=== PATIENT | female | born 1980 | race Caucasian/White ===

== ENCOUNTER 2017-05-30 21:44 | Emergency (ER) | payer OTHER ==
[2017-05-30 21:50] VITALS: BP 135/87
--- NOTE | 2017-05-30 22:01 | UC ---
Neck Pain HPI - HPI Summary HPI Summary: 37 YEAR OLD FEMALE PRESENTS WITH COMPLAINS OF INTRACTABLE NECK PAIN, LEFT JAW CLAUDICATION, AND LEFT ARM NUMBNESS. - History of Current Complaint Chief Complaint: UCBackPain Stated Complaint: NECK PAIN, AND JAW TIGHTNESS Time Seen by Provider: 05/30/17 21:58 Hx Obtained From: Patient Hx Last Menstrual Period: 05/02/17 Onset/Duration Of Injury/Symptoms: Hours Mechanism Of Injury: Sharp Trauma Onset/Duration: Sudden Onset Severity: Severe Pain Scale Used: 0-10 Numeric - 10 - Allergies/Home Medications Allergies/Adverse Reactions: Allergies Allergy/AdvReac Type Severity Reaction Status Date / Time Amoxicillin Allergy Itching Verified 05/30/17 22:38 Home Medications: Home Medications NK [No Home Medications Reported] 05/30/17 [History Confirmed 05/30/17] PMH/Surg Hx/FS Hx/Imm Hx Previously Healthy: Yes - Surgical History Surgical History: Yes Surgery Procedure, Year, and Place: x 3 - Social History Alcohol Use: None Substance Use Type: None Smoking Status (MU): Heavy Every Day Tobacco Smoker Type: Cigarettes Amount Used/How Often: 1/2 ppd Have You Smoked in the Last Year: Yes Household Exposure Type: Cigarettes - Immunization History Most Recent Influenza Vaccination: 05/17 Most Recent Tetanus Shot: unknown Most Recent Pneumonia Vaccination: None Review Of Systems Constitutional: Positive: Negative Eyes: Positive: Negative ENT: Positive: Negative Respiratory: Positive: Negative Cardiovascular: Positive: Negative Gastrointestinal: Positive: Negative Genitourinary: Positive: Negative Musculoskeletal: Positive: Other: - LEFT SIDED NECK PAIN All Other Systems Reviewed And Are Negative: Yes Physical Exam Triage Information Reviewed: Yes Appearance: Ill-Appearing Vital Signs: Initial Vital Signs Temp 37.1 C 05/30/17 21:46 Pulse 81 05/30/17 21:46 Resp 16 05/30/17 21:46 BP 135/87 05/30/17 21:46 Pulse Ox 100 05/30/17 21:46 Vital Signs Reviewed: Yes Eye Exam: Normal ENT Exam: Normal Dental Exam: Normal Neck exam: Normal Neck: Positive: 1 Respiratory Exam: Normal Cardiovascular Exam: Normal Abdominal Exam: Normal Musculoskeletal: Positive: Other: - LEFT NECK PAIN Neurological Exam: Normal Psychological Exam: Normal Skin Exam: Normal Neck Pain Course/Dx - Differential Dx/Diagnosis Provider Diagnoses: LEFT NECK PAIN Discharge - Discharge Plan Condition: Stable Disposition: HOME Patient Education Materials: Neck Pain (ED) Referrals: No Primary Care Phys,NOPCP [Primary Care Provider] - Additional Instructions: PLEASE GO TO ER FOR INTRACTABLE NECK PAIN.
== END 2017-05-30 22:14 | disposition home or self-care (01) ==
LOC: UCEAST 21:44
DX: M54.2 Cervicalgia (principal); M26.69 Other specified disorders of temporomandibular joint; R20.0 Anesthesia of skin; Z88.1 Allergy status to other antibiotic agents; F17.210 Nicotine dependence, cigarettes, uncomplicated
CPT/HCPCS: 99211; G0463

== ENCOUNTER 2017-05-30 22:29 | Emergency (ER) | payer OTHER ==
[2017-05-31] MEDS ORDERED: Ketorolac INJ* 60 MG/2 ML VIAL IM ONE (00:36)
[2017-05-31] MEDS ORDERED: Orphenadrine Citrate IV* 30 MG/ML 2 ML VIAL IM ONE (00:36)
[2017-05-31] MEDS ORDERED: Ketorolac INJ* 60 MG/2 ML VIAL ONE (00:39)
[2017-05-31] MEDS ORDERED: Orphenadrine Citrate IV* 30 MG/ML 2 ML VIAL ONE (00:39)
--- NOTE | 2017-05-31 02:56 | ED ---
Delano Del Rosario Alfonso, scribed for Laura Chung MD on 05/31/17 at 0050 . Complex/Multi-Sys Presentation - HPI Summary HPI Summary: This patient is a 37 year old F presenting to [facility] with a chief complaint of posterior neck pain since two weeks ago. The neck pain radiates to her jaw and shoulders. The patient rates the pain 8/10 in severity. Symptoms alleviated by nothing. Patient reports arm weakness and leg numbness. Patient denies fever, trauma, and urinary incontinence. Tobacco abuse disorder. - History Of Current Complaint Chief Complaint: EDNeckComplaint Time Seen by Provider: 05/31/17 00:35 Hx Obtained From: Patient Onset/Duration: Sudden Onset, Lasting Weeks - 2, Still Present Timing: Constant Alleviating Factor(s): nothing Associated Signs And Symptoms: Positive: Other - arm weakness and leg numbness. Patient denies fever, trauma, and urinary incontinence. - Allergies/Home Medications Allergies/Adverse Reactions: Allergies Allergy/AdvReac Type Severity Reaction Status Date / Time Amoxicillin Allergy Itching Verified 05/30/17 22:38 PMH/Surg Hx/FS Hx/Imm Hx Opthamlomology History: Denies: Hx Legally Blind EENT History: Denies: Hx Deafness Psychiatric History: Reports: Hx Depression - Surgical History Surgery Procedure, Year, and Place: x 3 Infectious Disease History: No Infectious Disease History: Denies: History Other Infectious Disease, Traveled Outside the [place] in Last 30 Days - Family History Known Family History: Positive: Other - Negative cancer - Social History Alcohol Use: None Substance Use Type: Reports: None Smoking Status (MU): Heavy Every Day Tobacco Smoker Type: Cigarettes Amount Used/How Often: 1/2 ppd Have You Smoked in the Last Year: Yes Review of Systems Negative: Fever Negative: incontinence Positive: Other - neck pain; negative trauma Neurological: Other - arm weakness and leg numbness All Other Systems Reviewed And Are Negative: Yes Physical Exam - Summary Physical Exam Summary: General: Well appearing, no pain distress Skin: Warm, Skin Color Reflects Adequate Perfusion, Dry Eyes: EOMI, SCOOTER ENT: Pharynx normal, TMs normal Neck: Supple, nontender Respiratory: CTA, breath sounds present, no rhonchi, no wheezes, no rales Cardiovascular: RRR, no murmur, no rub, no gallop Abdomen: Soft, nontender, Non-distended, no guarding, no rebound Bowel: Present Musculoskeletal: C1 and 2 tenderness. DTR normal. No hyperreflexia. Diffuse 4- strength. Neuro: Sensory/motor intact, A&Ox3, CN intact 2-12 Psych: Affect/mood appropriate Triage Information Reviewed: Yes Vital Signs On Initial Exam: Initial Vitals Temp Pulse Resp BP Pulse Ox 97.1 F 78 16 149/92 99 05/30/17 22:35 05/30/17 22:35 05/30/17 22:35 05/30/17 22:35 05/30/17 22:35 Vital Signs Reviewed: Yes Diagnostics - Vital Signs Vital Signs Temp Pulse Resp BP Pulse Ox 05/30/17 22:35 97.1 F 78 16 149/92 99 - Laboratory Lab Statement: Any lab studies that have been ordered have been reviewed, and results considered in the medical decision making process. - CT C-Spine CT Interpretation Completed By: Radiologist - Right central herniated disc osteophyte complex and uncovetebral joint hypertrophy at C2/3 which mildly now the right lateral recess and right neural foramen. ED physician has reviewed this radiology report and agrees. Complex Multi-Symp Course/Dx Course Of Treatment: 37 yo female with neck pain ct shows disk herniation no spinal cord involvement pt felt as though both upper and lower ext were weak but she had normal bicep and hip flexor strength and normal dtr's on exam and pain was much better in the ED. She has no risky diagnoses like cancer, diabetes or iV drug use. Pt understands she likely needs to arrange an outpt mri with her pmd and should return for change in sensation or strength - Diagnoses Provider Diagnoses: Cervical disc herniation Discharge - Discharge Plan Condition: Stable Disposition: HOME Prescriptions: Cyclobenzaprine TAB* [Flexeril 10 MG TAB*] 10 mg PO TID PRN #30 tab PRN Reason: Spasms HYDROcodone/ACETAMIN 5-325 MG* [Trout 5-325 TAB*] 2 tab PO Q8H PRN #18 tab MDD 6 PRN Reason: Pain Referrals: Ryan Sanchez MD [Primary Care Provider] - The documentation as recorded by the Delano haque Alfonso accurately reflects the service I personally performed and the decisions made by me, Laura Chung MD.
[2017-05-31 05:06] VITALS: BP 132/90
--- NOTE | 2017-05-31 08:04 | RAD ---
INDICATION: Right neck pain COMPARISON: None TECHNIQUE: Noncontrast axial source images was performed from the skull base to the thoracic inlet. Coronal and and sagittal reformatted images were generated. FINDINGS: Vertebrae: There is no fracture or acute focal bony lesion. Alignment: The craniocervical junction appears normal. The cervical vertebrae are normally aligned. Central Canal: There is right-sided disc/osteophyte complex with uncinate process spurring at C2-C3 resulting in mild foraminal encroachment. There are no additional significant CT abnormalities of the central canal or foramina. MR imaging is a more sensitive method to evaluate the canal and foramina. Intervertebral disc spaces: The disc spaces are maintained. Brain: The visualized brain appears unremarkable. Soft tissues: The visualized soft tissue elements of the neck are unremarkable. The prevertebral soft tissues appear normal. The lung apices are clear. IMPRESSION: ] RIGHT-SIDED DISC/OSTEOPHYTE COMPLEX AND UNCINATE PROCESS SPURRING AT C2-C3 LEADING TO MILD FORAMINAL COMPROMISE CONSIDER MR IMAGING.
== END 2017-05-31 03:45 | disposition home or self-care (01) ==
LOC: ED 22:29
DX: M50.220 Other cervical disc displacement, mid-cervical region, unspecified level (principal); M54.2 Cervicalgia; F17.210 Nicotine dependence, cigarettes, uncomplicated
CPT/HCPCS: 72125; 96374; 96375; 99282; J1885; J2360

== ENCOUNTER 2017-07-15 18:10 | Emergency (ER) | payer OTHER ==
[2017-07-15 18:17] VITALS: BP 151/93
[2017-07-15] MEDS ORDERED: Cyclobenzaprine TAB* 10 MG PO ONE (18:57)
[2017-07-15] MEDS ORDERED: HYDROcodone/ACETAMIN 5-325 MG* 1 TAB PO ONE (18:57)
--- NOTE | 2017-07-15 18:57 | UC ---
UC General HPI - HPI Summary HPI Summary: 8 WEEKS OR WORSENING PAIN IN TMJ AREA BILATERALLY. IBUPROFEN AND TYLENOL NO LONGER HELPING. WORSE WITH CHEWING. PT HAS A LOT OF STRESS AT HOME AND DOES THINK SHE CLENCHES HER TEETH. HAS APPT WITH PCP 08/08 BUT HERE BECAUSE PAIN IS GETTING INTOLERABLE. - History of Current Complaint Chief Complaint: UCBackPain Stated Complaint: JAW PAIN Time Seen by Provider: 07/15/17 18:33 Hx Obtained From: Patient Hx Last Menstrual Period: 07/04/2017 Onset/Duration: Gradual Onset, Lasting Weeks, Still Present Timing: Constant Onset Severity: Moderate Current Severity: Moderate Pain Intensity: 6 Associated Signs & Symptoms: Negative: Cough, Chest Pain, Fever, Nausea, Palpitations, Recent Medication Changes, Syncope, SOB, Trauma - Allergy/Home Medications Allergies/Adverse Reactions: Allergies Allergy/AdvReac Type Severity Reaction Status Date / Time Amoxicillin Allergy Itching Verified 07/15/17 18:17 Home Medications: Home Medications Acetaminophen TAB* [Tylenol TAB*] 1,000 mg PO Q72HR 07/15/17 [History Confirmed 07/15/17] Clindamycin Cap(NF) [Clindamycin Cap 300 mg Cap(NF)] 1 tab PO TID 07/15/17 [ History Confirmed 07/15/17] Ibuprofen TAB* [Motrin TAB* 800 MG] 1 tab PO Q3HR 07/15/17 [History Confirmed ] PMH/Surg Hx/FS Hx/Imm Hx Previously Healthy: Yes - Surgical History Surgical History: Yes Surgery Procedure, Year, and Place: x 3 - Family History Known Family History: Positive: Other - Negative cancer - Social History Alcohol Use: None Substance Use Type: None Smoking Status (MU): Heavy Every Day Tobacco Smoker Type: Cigarettes Amount Used/How Often: 1/2 ppd Have You Smoked in the Last Year: Yes Household Exposure Type: Cigarettes - Immunization History Most Recent Influenza Vaccination: 05/17 Most Recent Tetanus Shot: unknown Most Recent Pneumonia Vaccination: None Review of Systems Constitutional: Negative Skin: Negative Respiratory: Negative Cardiovascular: Negative Gastrointestinal: Negative Musculoskeletal: Arthralgia All Other Systems Reviewed And Are Negative: Yes Physical Exam Triage Information Reviewed: Yes Appearance: Well-Appearing, Well-Nourished, Pain Distress - MOD Vital Signs: Initial Vital Signs Temp 98.9 F 11/12/17 18:13 Pulse 84 07/15/17 18:13 Resp 12 07/15/17 18:13 BP 151/93 07/15/17 18:13 Pulse Ox 100 07/15/17 18:13 Vital Signs Reviewed: Yes Eyes: Positive: Conjunctiva Clear ENT: Positive: Hearing grossly normal Neck: Positive: Supple Respiratory: Positive: No respiratory distress, No accessory muscle use Cardiovascular: Positive: Pulses Normal Abdomen Description: Positive: Soft Musculoskeletal: Positive: No Edema, Other: - TTP BILATERAL TMJ Neurological: Positive: Alert Psychological: Positive: Age Appropriate Behavior Skin: Negative: rashes Course/Dx - Differential Dx - Multi-Symptom Provider Diagnoses: TMJ Discharge - Discharge Plan Condition: Stable Disposition: HOME Prescriptions: Cyclobenzaprine TAB* [Flexeril TAB*] 10 mg PO TID PRN #30 tab PRN Reason: Pain HYDROcodone/ACETAMIN 5-325 MG* [Leblanc 5-325 TAB*] 1 tab PO Q6H PRN #15 tab MDD 4 PRN Reason: Pain Patient Education Materials: Temporomandibular Disorder (ED) Referrals: Yari Abernathy DDS,Tez Mendez [Doctor of Dental Surgery] - As Soon As Possible ( SPECIALIZES IN TMJ) Ryan Sanchez MD [Primary Care Provider] - Additional Instructions: What are temporomandibular joint disorders? Temporomandibular joint disorders are problems with the jaw joint and the muscles around it. The jaw joint, called the temporomandibular joint, is located in front of the ear where the jawbone connects to your head. To feel the joint, place your finger on your cheek just in front of your ear and then open and close your mouth. When doctors refer to temporomandibular joint disorders, they often call it TMJ , for short. TMJ can be caused by many problems, including arthritis. More often it is due to a combination of stress, jaw clenching, teeth grinding, and other things that strain the jaw joint and the muscles around it. What are the symptoms of TMJ? The main symptom of TMJ is a dull pain in the jaw muscles that doesnt go away. The pain is often on just one side of the face , near the ear. Sometimes the pain also affects the ear, jaw, or back of the neck. It is usually worse when chewing. Some people just have headaches with TMJ. Others might hear a clicking or popping sound or have a crunchy feeling in the joint when they open and close their mouth. The most common presenting signs and symptoms are: - Pain (96.1 percent) - Ear discomfort or dysfunction (82.4 percent) - Headache (79.3 percent) - TMJ discomfort or dysfunction (75.0 percent) Should I see a doctor or nurse? If the pain in your face or jaw is bothering you and does not go away, you should see your doctor or nurse. What tests might I need? There is no single test that can show if you have TMJ. Your doctor or nurse should be able to tell if you have TMJ by learning about your symptoms and doing an exam. Unless the doctor finds something unusual in the exam, most patients will NOT need X-rays or an MRI (an imaging test that creates pictures of the inside of your body). How is TMJ treated? No single treatment for TMJ works for everyone. Most of the time, medicines and simple lifestyle changes can help. Most patients get better over time, even without treatment, so patience is important. Your doctor or nurse will help you find the right mix of treatments for you. He or she might refer you to a dentist who specializes in TMJ. Treatment options include: - Medicines to relieve pain and relax the muscles There are several types of medicines used to treat TMJ. These include nonsteroidal antiinflammatory drugs ( NSAIDs), muscle relaxants, and certain medicines used for depression. ( Medicines for depression can relieve pain even in people who are not depressed. ) Your doctor will decide which medicine or group of medicines is best for you. - Jaw exercises There are simple jaw exercises that seem to help some people. Ask your doctor to show you how to do them. - Bite plates/splints These are special devices that fit in your mouth and keep you from grinding your teeth at night. They are made out of either a hard or soft plastic and might be made specially to fit your mouth. If you have sleep apnea, be sure to tell your doctor as the bite plate or splint might make your sleep apnea worse. If these treatments dont help, your doctor might suggest that you see a specialist, such as an oral surgeon. The specialist might use medicines given by injection (shots) to treat the pain. It is rare that people need surgery for TMJ. Is there anything I can do on my own to feel better? Yes. You might feel better if you: - Avoid doing things that make the pain worse, such opening your mouth too wide. - Eat soft foods that dont require a lot of chewing. - Practice relaxing You can learn methods to relax your body, such as doing deep breathing exercises. Ask your doctor or nurse about these methods. Relaxing the mind can help with how the body feels pain. People can learn to quiet their pain or make it less bothersome. - Use ice packs to ease the pain Use a bag of ice, bag of frozen peas, or cold gel pack once every 2 hours, for 20 minutes each time. Put a towel or cloth between the ice and your skin. Do not put the ice directly on your skin. - Put heat on the painful area Wet a clean washcloth with warm water and put it on the area. When the washcloth cools, reheat it with warm water and put it back on. Repeat these steps for 10 to 15 minutes every few hours. - Avoid stimulants, such as coffee, tea, ericka, or decongestant medicines, since these can make your anxiety worse.
== END 2017-07-15 19:08 | disposition home or self-care (01) ==
LOC: UCEAST 18:10
DX: M26.603 Bilateral temporomandibular joint disorder, unspecified (principal); Z88.1 Allergy status to other antibiotic agents; F17.210 Nicotine dependence, cigarettes, uncomplicated
CPT/HCPCS: 99213; A9270-GY; G0463

== ENCOUNTER 2018-09-06 08:36 | Emergency (ER) | payer OTHER ==
--- NOTE | 2018-09-06 09:24 | UC ---
Palpitation/Dysrhythmia HP - HPI Summary HPI Summary: WOKE UP THIS MORNING FEELING LIKE HER HEART WAS SKIPPING BEATS AND BEATING IRREGULARLY. SHE HAD ASSOCIATED LIGHTHEADEDNESS/DIZZINESS, NAUSEA AND SHORTNESS OF BREATH. ALSO HAD SOME TRANSIENT SHARP PAIN UNDER HER LEFT BREAST. SHE DENIES ANY SIGNIFICANT MEDICAL HISTORY OTHER THAN SMOKING. IN THE URGENT CARE SHE NO LONGER FEELS THE IRREGULAR HEARTBEAT OR CHEST PAIN BUT HAS PERSISTENT LIGHTHEADEDNESS. - History of Current Complaint Chief Complaint: UCDizziness Stated Complaint: NAUSEA, LIGHT-HEADEDNESS, SOB Time Seen by Provider: 09/06/18 08:53 Hx Obtained From: Patient Hx Last Menstrual Period: 08/27/19 Onset/Duration: Sudden Onset, Lasting Hours Timing: Constant Severity Initially: Moderate Severity Currently: Moderate Pain Intensity: 8 Pain Scale Used: 0-10 Numeric Character: Irregular, Pounding Aggravating Factor(s): Nothing Alleviating Factor(s): Nothing Associated Signs & Symptoms: Positive: Lightheadedness, Dizzy, Chest Pain, Shortness of Breath, Nausea - Allergy/Home Medications Allergies/Adverse Reactions: Allergies Allergy/AdvReac Type Severity Reaction Status Date / Time amoxicillin Allergy Itching Verified 09/06/18 08:44 Home Medications: Home Medications Z-Quil 1 tab PO ONCE PRN 09/06/18 [History Confirmed 09/06/18] PMH/Surg Hx/FS Hx/Imm Hx Previously Healthy: Yes - Surgical History Surgical History: Yes Surgery Procedure, Year, and Place: x 3 - Family History Known Family History: Positive: Other - Negative cancer Negative: Cardiac Disease, Hypertension - Social History Alcohol Use: None Substance Use Type: None Smoking Status (MU): Heavy Every Day Tobacco Smoker Type: Cigarettes Amount Used/How Often: 1/2 ppd Have You Smoked in the Last Year: Yes Household Exposure Type: Cigarettes - Immunization History Most Recent Influenza Vaccination: 05/17 Most Recent Tetanus Shot: unknown Most Recent Pneumonia Vaccination: None Review of Systems All Other Systems Reviewed And Are Negative: Yes Constitutional: Positive: Negative ENT: Positive: Negative Respiratory: Positive: Shortness Of Breath Cardiovascular: Positive: Palpitations, Chest Pain Gastrointestinal: Positive: Nausea Neurological: Positive: Other - DIZZY Physical Exam Triage Information Reviewed: Yes Appearance: Well-Appearing, No Pain Distress, Well-Nourished Vital Signs: Initial Vital Signs Temp 98.9 F 09/06/18 08:40 Pulse 87 09/06/18 08:40 Resp 18 09/06/18 08:40 BP 157/83 09/06/18 08:40 Pulse Ox 100 09/06/18 08:40 Vital Signs Reviewed: Yes Eyes: Positive: Conjunctiva Clear ENT: Positive: Hearing grossly normal Neck: Positive: Supple Respiratory Exam: Normal Cardiovascular Exam: Normal Abdomen Description: Positive: Soft Musculoskeletal: Positive: No Edema Neurological: Positive: Alert Psychological: Positive: Age Appropriate Behavior Skin: Negative: Rashes Diagnostics - EKG Cardiac Rate: NL - 74BPM Cardiac Rhythm: Sinus: Normal Ectopy: None ST Segment: Normal Palpitations Course/Dx - Course Course Of Treatment: TO [facility] [place] [facility] BY AMBULANCE. NURSE TO NURSE REPORT GIVEN. I CALLED OVER TO GIVE MD TO MD REPORT AND WAS ADVISED THAT THIS WAS UNNECESSARY. - Differential Dx/Diagnosis Provider Diagnosis: Palpitations, Dizziness Discharge - Sign-Out/Discharge Documenting (check all that apply): Patient Departure All imaging exams completed and their final reports reviewed: No Studies - Discharge Plan Condition: Stable Disposition: TRANS HIGHER LVL OF CARE FAC Referrals: Ryan Sanchez MD [Primary Care Provider] - - Billing Disposition and Condition Condition: STABLE Disposition: Trans Higher Lvl of Care Fac
[2018-09-06 09:36] VITALS: BP 133/91
== END 2018-09-06 09:36 | disposition short-term general hospital (02) ==
LOC: UCEAST 08:36
DX: R00.2 Palpitations (principal); R42 Dizziness and giddiness; Z88.0 Allergy status to penicillin; F17.210 Nicotine dependence, cigarettes, uncomplicated
CPT/HCPCS: 93005; 99213; G0463

== ENCOUNTER → 2018-09-06 09:55 | Emergency (ER) | payer OTHER ==
[~2018-09-06 09:55] MED LIST: Aspirin 81 mg CHEW TAB* 81 MG TAB.CHEW PO ONE; NS 0.9% 1000 ML* 1,000 ML IV ONE; Ondansetron INJ* 2 MG/ML VIAL IV ONE
--- NOTE | 2018-09-06 10:09 | ED ---
HPI Cardiac - HPI Summary HPI Summary: Patient is 38 y/o F [facility] with complaints of intermittent left sided chest pain, palpitations, SOB, light- headedness/dizziness, and nausea. Patient states that she began to experience Sx this morning. Palpitations are described as "skipping". [facility] was normal, no STEMI. EMS gave 324 ASA, placed PIV. Upon arrival, patient has no chest pain. In the room, she states palpitations are no longer present. However, she still feels nauseous and is light-headed/dizzy. She reports experiencing cold Sx this week. No Hx of present Sx, no Hx of diabetes, HTN. FMHx of liver disease in father. FMHx of palpitations is denied. She is a current smoker, denies alc usage. LNMP was Aug 27 2018. On triage, pain is denied, nothing is noted to aggravate/alleviate Sx. Home medications, allergies, and nurse's note are reviewed. - History of Current Complaint Stated Complaint: SHORT OF BREATH Time Seen by Provider: 09/06/18 09:58 Hx Obtained From: Patient Hx Last Menstrual Period: 08/27/19 Onset/Duration: Started Hours Ago - this morning, Still Present, Resolved - chest pain Timing: Intermittent - chest pain, palpitations, Lasting Hours - nausea, light- headedness Current Severity: None Pain Intensity: 0 Pain Scale Used: 0-10 Numeric - 0/10 Chest Pain Radiates: No Character: Skipped Beats Aggravating Factor(s): Nothing Alleviating Factor(s): Nothing Associated Signs and Symptoms: Positive: Chest Pain, Dizziness, Shortness of Breath, Lightheadedness, Nausea, Palpitations - Allergy/Home Medications Allergies/Adverse Reactions: Allergies Allergy/AdvReac Type Severity Reaction Status Date / Time amoxicillin Allergy Itching Verified 09/06/18 10:11 PMH/Surg Hx/FS Hx/Imm Hx Sensory History: Denies: Hx Legally Blind, Hx Deafness Opthamlomology History: Denies: Hx Legally Blind EENT History: Denies: Hx Deafness Psychiatric History: Reports: Hx Depression - Surgical History Surgery Procedure, Year, and Place: x 3 Infectious Disease History: Denies: History Other Infectious Disease - Family History Known Family History: Positive: Other - Negative cancer Negative: Cardiac Disease, Hypertension - Social History Alcohol Use: None Substance Use Type: Reports: None Smoking Status (MU): Heavy Every Day Tobacco Smoker Type: Cigarettes Amount Used/How Often: 1/2 ppd Have You Smoked in the Last Year: Yes Review of Systems Positive: Palpitations, Chest Pain Positive: Shortness Of Breath Positive: Nausea Neurological: Other - POSITIVE - DIZZINESS, LIGHT-HEADEDNESS All Other Systems Reviewed And Are Negative: Yes Physical Exam - Summary Physical Exam Summary: Appearance: Well appearing, no pain distress Skin: warm, dry, reflects adequate perfusion Head/face: normal Eyes: EOMI, SCOOTER ENT: mucous membranes moist Neck: supple, non-tender Respiratory: CTA, breath sounds present Cardiovascular: RRR, pulses symmetrical Abdomen: non-tender, soft Bowel Sounds: present Musculoskeletal: normal, strength/ROM intact Neuro: normal, sensory motor intact, A&Ox3 Triage Information Reviewed: Yes Vital Signs On Initial Exam: Initial Vitals Pulse Resp Pulse Ox 74 19 99 09/06/18 10:01 09/06/18 10:01 09/06/18 10:01 Vital Signs Reviewed: Yes Diagnostics - Laboratory Result Diagrams: 09/06/18 09:28 09/06/18 09:28 Lab Statement: Any lab studies that have been ordered have been reviewed, and results considered in the medical decision making process. - Radiology CXR Radiology Interpretation Completed By: Radiologist Summary of Radiographic Findings: IMPRESSION: NO ACTIVE CARDIOPULMONARY DISEASE IS NOTED. THIS REPORT WAS REVIEWED BY ED PHYSICIAN. - EKG 1012 Cardiac Rate: NL - rate of 68 BPM EKG Rhythm: Sinus Rhythm ST Segment: Normal Ectopy: None Summary of EKG Findings: EKG showed NSR with rate of 68 BPM, normal axis, normal intervals, normal ST. Re-Evaluation - Re-Evaluation First Eval Re-Evaluation Time: 10:05 Comment: Per nurse, "patient states she is suddenly experiencing a feeling as though "someone is pushing on my chest"." Second Eval Re-Evaluation Time: 11:05 Comment: Results of labs and tests were discussed with patient. She states that she has been feeling fatigued recently due to her children. Patient will be discharged to home, she is agreeable with this. Disposition - Course Course Of Treatment: Nurse's notes reviewed. Patient states she is quite fatigued and has had palpitations this morning. EKG, monitoring fails to show any ectopy or arrhythmia. Troponin, d-dimer and the rest of the workup all negative. The patient states that she has not been sleeping well due to her 4 children being at home over holiday break. She will follow closely with primary care physician for outpatient Holter monitor, possible stress test and reevaluation. - Differential Dx - Cardiopulmonary Differential Diagnoses - Cardiopulmonary: Atrial Fibrillation, Atrial Flutter, AV Block, CAD, Hyperventilation, Hypokalemia, Panic Disorder, Paroxysmal SVT, Pulmonary Edema, Pulmonary Embolism - Diagnoses Provider Diagnoses: Palpitations, Fatigue Discharge - Sign-Out/Discharge Documenting (check all that apply): Patient Departure - discharge - Discharge Plan Condition: Improved Disposition: HOME Prescriptions: Famotidine TAB* [Pepcid 20 MG TAB*] 20 mg PO BID #60 tab Patient Education Materials: Heart Palpitations (ED) Referrals: Ryan Sanchez MD [Primary Care Provider] - Additional Instructions: Suggested to follow up with primary care physician very closely, call today for an appointment. Recommended outpatient workup to include Holter monitor, stress test. Take a daily baby aspirin. Return with difficulty breathing, chest pain, worse, new symptoms or other concerns. Try to get some rest today. - Billing Disposition and Condition Condition: IMPROVED Disposition: Home - Attestation Statements Document Initiated by Kelsey: Yes Documenting Scribe: DANIELA WANG Provider For Whom Kelsey is Documenting (Include Credential): VALE CALDWELL MD Scribe Attestation: DANIELA Del Rosario , scribed for VALE CALDWELL MD on 09/06/18 at 1306. Scribe Documentation Reviewed: Yes Provider Attestation: The documentation as recorded by the DANIELA haque accurately reflects the service I personally performed and the decisions made by me, VALE CALDWELL MD Status of Scribe Document: Viewed
[2018-09-06 10:31] LABS: ABS Basophils 0.1 10^3/ul (0-0.2); ABS Eosinophils 0.2 10^3/ul (0-0.6); ABS Monocytes 0.4 10^3/ul (0-0.8); ABS Neutrophils 5.8 10^3/ul (1.5-7.7); ABS Nucleated RBC 0 10^3/ul; Eosinophil % 2.8 %; Hematocrit 36 % (35-47); Hemoglobin 11.7 g/dl (12.0-16.0); Lymphocyte % 23.8 %; Mean Corpuscular HGB Conc 33 g/dl (31-36); Mean Corpuscular Hemoglobin 29 pg (27-31); Mean Corpuscular Volume 89 fL (80-97); Mean Platelet Volume 7.4 fL (7.4-10.4); Nucleated Red Blood Cells % 0; Platelet Count 268 10^3/ul (150-450); Red Cell Distribution Width 15 % (10.5-15); White Blood Count 8.6 10^3/ul (3.5-10.8)
[2018-09-06 11:03] LABS: Albumin 3.9 g/dL (3.2-5.2); Albumin/Globulin Ratio 1.2 (1-3); BUN/Creatinine Ratio 11.5 (8-20); EGFR Non-African American 108.6 (>60); Globulin 3.2 g/dL (2-4); Magnesium 1.9 mg/dL (1.9-2.7); Potassium 3.8 mmol/L (3.5-5.0); Total Bilirubin 0.3 mg/dL (0.2-1.0); Total Protein 7.1 g/dL (6.4-8.9)
[2018-09-06 11:18] LABS: TSH (Thyroid Stimulating Horm) 1.5 mcIU/mL (0.34-5.60)
[2018-09-06 11:26] VITALS: BP 122/78
== END | disposition home or self-care (01) ==
LOC: ED 09:55
DX: R00.2 Palpitations (principal); R53.83 Other fatigue; R07.9 Chest pain, unspecified; R42 Dizziness and giddiness; R06.02 Shortness of breath; F17.210 Nicotine dependence, cigarettes, uncomplicated
CPT/HCPCS: 36415; 71045; 80053; 82550; 83605; 83735; 84443; 84484; 85025; 85379; 93005; 96361; 96374; 99282; J2405

== ENCOUNTER 2019-07-20 13:19 | Emergency (ER) | payer OTHER ==
[2019-07-20 13:36] VITALS: BP 121/72
[2019-07-20] MEDS ORDERED: Ibuprofen TAB* 600 MG PO ONE (13:49)
--- NOTE | 2019-07-20 14:33 | UC ---
Lower Extremity/Ankle HPI - HPI Summary HPI Summary: THIS MORNING A WOODEN BENCH TIPPED OVER AND LANDED ON PATIENT'S RIGHT FOOT. SHE IS UNABLE TO BEAR WEIGHT AND IS CONCERNED ABOUT FRACTURE. - History of Current Complaint Chief Complaint: UCLowerExtremity Stated Complaint: R FOOT INJURY Time Seen by Provider: 07/20/19 13:46 Hx Obtained From: Patient Hx Last Menstrual Period: June Onset/Duration: Sudden Onset, Lasting Hours, Still Present Severity Initially: Moderate Severity Currently: Moderate Pain Intensity: 9 Pain Scale Used: 0-10 Numeric Aggravating Factor(s): Standing, Ambulation Alleviating Factor(s): Rest, Elevation Able to Bear Weight: No - Allergies/Home Medications Allergies/Adverse Reactions: Allergies Allergy/AdvReac Type Severity Reaction Status Date / Time amoxicillin Allergy Itching Verified 07/20/19 13:30 Home Medications: Home Medications Sertraline* [Zoloft*] 100 mg PO DAILY 07/20/19 [History Confirmed 07/20/19] PMH/Surg Hx/FS Hx/Imm Hx Previously Healthy: Yes - Surgical History Surgical History: Yes Surgery Procedure, Year, and Place: x 3 - Family History Known Family History: Positive: Other - Negative cancer Negative: Cardiac Disease, Hypertension - Social History Alcohol Use: None Substance Use Type: None Smoking Status (MU): Heavy Every Day Tobacco Smoker Type: Cigarettes Amount Used/How Often: 1/2 ppd Have You Smoked in the Last Year: Yes Household Exposure Type: Cigarettes - Immunization History Most Recent Influenza Vaccination: 05/17 Most Recent Tetanus Shot: unknown Most Recent Pneumonia Vaccination: None Review of Systems All Other Systems Reviewed And Are Negative: Yes Constitutional: Positive: Negative Skin: Positive: Negative Respiratory: Positive: Negative Cardiovascular: Positive: Negative Gastrointestinal: Positive: Negative Musculoskeletal: Positive: Other: - DORSAL RIGHT FOOT PAIN Physical Exam Triage Information Reviewed: Yes Appearance: Well-Appearing, No Pain Distress, Well-Nourished Vital Signs: Initial Vital Signs Temp 96.9 F 07/20/19 13:30 Pulse 91 07/20/19 13:30 Resp 20 07/20/19 13:30 BP 121/72 07/20/19 13:30 Pulse Ox 99 07/20/19 13:30 Vital Signs Reviewed: Yes Eyes: Positive: Conjunctiva Clear ENT: Positive: Hearing grossly normal Neck: Positive: Supple Respiratory: Positive: No respiratory distress, No accessory muscle use Cardiovascular: Positive: Pulses Normal Abdomen Description: Positive: Soft Musculoskeletal: Positive: ROM Intact, No Edema, Other: - TTP RIGHT FOOT DORSAL SURFACE. ACHILLES INTACT Neurological: Positive: Alert Psychological: Positive: Age Appropriate Behavior Skin: Negative: Rashes Diagnostics - Radiology RIGHT FOOT XRAYS Radiology Interpretation Completed By: Radiologist Summary of Radiographic Findings: Normal radiograph of the right foot. Lower Extremity Course/Dx - Differential Dx/Diagnosis Provider Diagnosis: Contusion of right foot Discharge ED - Sign-Out/Discharge Documenting (check all that apply): Patient Departure All imaging exams completed and their final reports reviewed: Yes - Discharge Plan Condition: Stable Disposition: HOME Patient Education Materials: Contusion in Adults (ED) Referrals: Ryan Sanchez MD [Primary Care Provider] - If Needed [place] Gongora MD [Medical Doctor] - If Needed Additional Instructions: XRAY TODAY NEGATIVE FOR FRACTURE OR DISLOCATION. YOUR SYMPTOMS SHOULD IMPROVE SIGNIFICANTLY OVER THE NEXT 1-2 WEEKS. IF YOU DO NOT IMPROVE EXPECTED FOLLOW- UP WITH YOUR PCP OR ORTHO. YOU MAY BENEFIT FROM REPEAT IMAGING AT THAT TIME. OTC IBUPROFEN OR ALEVE NEEDED FOR DISCOMFORT. REST, ICE, COMPRESS, ELEVATE. USE YOUR CHEL WRAP AND CRUTCHES NEEDED FOR SYMPTOM RELIEF. - Billing Disposition and Condition Condition: STABLE Disposition: Home
== END 2019-07-20 14:46 | disposition home or self-care (01) ==
LOC: UCEAST 13:19
DX: S90.31XA Contusion of right foot, initial encounter (principal); F17.210 Nicotine dependence, cigarettes, uncomplicated; Z88.0 Allergy status to penicillin; W22.03XA Walked into furniture, initial encounter; Y92.9 Unspecified place or not applicable
CPT/HCPCS: 99211; 99212; A9270-GY; G0463